=== PATIENT | female | born 1970 | race Caucasian/White ===

== ENCOUNTER → 2020-12-22 | Outpatient (CLI) | payer OTHER | LOC: M.RAD 08:51 | PROVIDERS: ATTEND Chiropractor | DX: M19.032 Primary osteoarthritis, left wrist (principal); M19.031 Primary osteoarthritis, right wrist; M77.8 Other enthesopathies, not elsewhere classified; M25.561 Pain in right knee; M25.562 Pain in left knee; M21.072 Valgus deformity, not elsewhere classified, left ankle; M21.071 Valgus deformity, not elsewhere classified, right ankle ==